=== PATIENT | female | born 1960 | race Caucasian/White ===

== ENCOUNTER 2016-04-11 12:50 | Emergency (ER) | payer OTHER ==
[~2016-04-11] VITALS: Ht 162.6 cm; Wt 107.6 kg
[2016-04-11 13:19] VITALS: BP 172/81; PULSE 81; RESP 16; TEMP 98.5; O2SAT 98
[2016-04-11] MEDS ORDERED: HYDR50TA3 PO (13:49)
[2016-04-11] MEDS ORDERED: LISI40TA PO (13:49)
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
== END 2016-04-11 17:31 | disposition home or self-care (01) ==
LOC: PHEFT 12:50
DX: R07.89 Other chest pain (principal); S30.1XXA Contusion of abdominal wall, initial encounter; M25.562 Pain in left knee; M25.571 Pain in right ankle and joints of right foot; I10 Essential (primary) hypertension; V49.88XA Car occupant (driver) (passenger) injured in other specified transport accidents, initial encounter; Y92.410 Unspecified street and highway as the place of occurrence of the external cause
CPT/HCPCS: 71020; 72170; 73560; 73610; 73620; 99283